=== PATIENT | female | born 1955 | race Caucasian/White ===

== ENCOUNTER → 2016-12-26 | Day surgery (SDC) | payer OTHER ==
[~2016-12-26] VITALS: Ht 157.5 cm; Wt 59.8 kg
[2016-12-26] VITALS (8 sets, daily range): BP systolic 110–133; BP diastolic 60–79; PULSE 55–62; RESP 12–16; O2SAT 96–100
[~2016-12-26] MED LIST: AMT25T PO; Bupivacaine-MPF 0.5% 30 mL Inj INFILTRATE ONE; CeFAZolin 2 Gm/50 mL D5W Duplex Bag IV ONE; CeFAZolin 2 Gm/50 mL D5W IV Premix IV SCH; DOCU-41 PO; Dexamethasone 4 mg/mL Inj ONE; EPHEDrine Sulfate 50 mg/mL Inj IM PRN; EPHEDrine Sulfate 50 mg/mL Inj IVPUSH PRN; EPHEDrine/NS 5 mg/mL 5 mL Syringe ONE; HYDROmorphone 1 mg/mL Inj IVPUSH PRN; HepLOK Flush 100 unit/mL 5 mL Inj IVFLUSH ONE; IMI100 PO; LORA10CA9 PO; Lactated Ringer's 1,000 ML IV SCH; Lactated Ringer's 500 ML IV PRN; MetoCLOpramide 5 mg/mL 2 mL Inj IVPUSH PRN; MetoCLOpramide 5 mg/mL 2 mL Inj ONE; OXYC-530 PO; Ondansetron 2 mg/mL 2 mL Inj IVPUSH PRN; Ondansetron 2 mg/mL 2 mL Inj ONE; POLY17PO6 PO; PROP120C2 PO; Phenylephrine 10,000 mCg/mL Inj IVPUSH PRN; Propofol 10,000 mCg/mL 20 mL Inj ONE; RANI150C4 PO; SERT100T9 PO; excedrin migraine; fentaNYL-PF 50 mCg/mL 2 mL Inj IVPUSH PRN; fentaNYL-PF 50 mCg/mL 2 mL Inj ONE; hydrOXYzine Inj 50 MG/1 mL SDV IM PRN
[2016-12-26] MEDS: Lactated Ringer's 1,000 ML IV SCH ×2 (06:48→07:28)
--- NOTE | 2016-12-26 07:57 | PCM.HPANE ---
Patient Data Date of Service: Dec 26, 2016 (0715) Surgeon Admitting Provider: Attending Provider:Niya Vital MD Primary Care Physician:Markos Best DO Other Provider:Eden Mitchell Anesthesia Reason for Visit Right Breast Cancer Ht/WT & BMI Height (Feet): 5 Height (Inches): 2.00 Weight (Kilograms): 59.8 Body Mass Index 24.00 Allergies Coded Allergies: morphine (Verified Allergy, Severe, severe N&V, 11/14/14) Sulfa (Sulfonamide Antibiotics) (Verified Allergy, Unknown, 11/11/14) Past Anesthesia History Anesthesia History: Denies:: Abnormal Airway, Anesthesia Reactions, Difficult Intubation, Fam Anesthesia Reaction, Fam Malignant Hypertherm, Malignant Hyperthermia Diabetes History Hx Diabetes?: No MRSA MRSA: No Medications Home Meds Incl Beta Jigna: Yes Date Beta Jigna Taken: Dec 25, 2016 Time Beta Jigna Taken: 0900 Reported Medications [excedrin migraine] No Conflict Check2 Tab Q6H PRN Headache 12/20/16 Ranitidine 150 Mg [id number] Mg PO BID Ref 0 12/20/16 Docusate Sodium (Colace)100 Mg Sjogoyc175 Mg PO DAILY PRN For Constipation Ref 0 12/20/16 Sumatriptan (Imitrex)100 Mg Mssbua469 Mg PO PRN migraines 12/20/16 Sertraline HCl (Sertraline)100 Mg Fwmjmp698 Mg PO DAILY 30 Days Ref 0 12/20/16 Propranolol ER 120 Mg Cap.sa.72d303 Mg PO DAILY 12/20/16 Loratadine 10 Mg Uuerbax39 Mg PO DAILY PRN For Congestion 12/20/16 Amitriptyline 25 Mg Tab25 Mg PO HS Ref 0 12/20/16 Discontinued Reported Medications Polyethylene Glycol 3350 (Miralax)17 Gm Powd.pack17 Gm PO DAILY 12/20/16 oxyCODONE 5 Mg Tablet5 Mg PO Q4H PRN For Pain Ref 0 12/20/16 [Excedrin Migraine ] No Conflict Check2 Tab PO Q6H PRN Headache 12/05/16 Sumatriptan (Imitrex)100 Mg Xnxfsi719 Mg PO PRN migraine 11/10/14 Sertraline HCl (Sertraline)100 Mg Nkejwe478 Mg PO DAILY 30 Days Ref 0 11/10/14 Ranitidine 150 Mg Nzpuprc893 Mg PO BID Ref 0 11/10/14 Propranolol ER 120 Mg Cap.sa.07b749 Mg PO DAILY 11/10/14 Polyethylene Glycol 3350 (Miralax)17 Gm Powd.pack17 Gm PO DAILY 11/10/14 Docusate Sodium (Colace)100 Mg Halszuy031 Mg PO DAILY PRN For Constipation Ref 0 11/10/14 Loratadine (Claritin)10 Mg Huyrdkf94 Mg PO DAILY PRN alergies 11/10/14 Amitriptyline 25 Mg Tab25 Mg PO HS Ref 0 11/10/14 Discontinued Scripts Polyethylene Glycol 3350 (Miralax)17 Gm Powd.pack17 Gm PO DAILY PRN For Constipation #20 Prov:Niya Vital MD 11/14/14 oxyCODONE 5 Mg Tablet5 Mg PO Q4H PRN For Moderate Pain #20 TABLET Prov:Niya Vital MD 11/14/14 History History of ENT Problems?: No HEENT History: Denies:: Abnormal Airway Difficult Intubation Hearing Problem Denture Type: None Teeth Condition: Missing Teeth Hx of Heart Problems?: No Cardiovascular History: Denies:: AICD Abdominal Aortic Aneurism Atrial Fibrillation Cardiac Surgery Chest Pain Congestive Heart Failure Coronary Artery Disease Edema Heart Murmur Hypertension Irregular Heartbeat Pacemaker Peripheral Vascular Rheumatic Fever Thrombophlebitis Valvular Heart Disease Hx of Respiratory Problem?: No Respiratory History: Denies:: Asthma COPD Chest Surgery Cough Dyspnea Emphysema Hemoptysis Oxygen Administration Pneumonia Pulmonary Embolism Tuberculosis Use of C-PAP Machine Use of Inhalers / NEBS Hx Neurologic Problems?: No Neurological History: Positive for:: Headaches (migraines) Denies:: CVA Hx of GI Problems?: Yes Gastrointestinal History: Positive for:: Gastroesphageal Reflux Denies:: Cirrhosis Diverticulitis Gall Bladder Disease Gastrointestinal Bleeding Heartburn Hepatitis Hiatal Hernia Liver Disease Rectal Bleeding Hx of Problems?: No Female Hx: Positive for:: Endometriosis (hx of ablation) Problems with Breasts? (breast cancer current admission problem) Denies:: Currently (post menopausal) Pelvic Inflammatory Skin History: Denies:: History Skin Disorders? Hx Musculoskeletal Problems?: Yes Musculoskeletal History: Positive for:: Musculoskeletal Trauma (prior hx of lesly bunion correction) Denies:: Joint Replacement Hx of Psycho/Social Problems?: Yes Psycho Social History: Positive for:: Hx Depression Hx Surgeries?: Yes (Endometriosis surgery; Hernia repair; fredi) Hx Any Other Health Problems?: Yes Other History: Positive for:: Cancer (breast cancer) Hospitalization ([facility]) Denies:: Endocrine Disease Thyroid Disease Hx Diabetes: No Hx Alcohol Use: NoHx Substance Use: No Smoking Status: Never Smoker Have You Smoked inLast 12 mo: No Stop/Bang P-Blood Pressure: treated: No B- Body Mass Index > 35 kg/m2: No A- Age over 50: Yes N- Neck Large Circumference: No G- Gender Male: No Risk Assessment Category Category 1A: Patient has history of documented sleep apnea, and HAS NOT received any narcotic, sedative or anesthesia administration during this stay. Category 1B: Patient has history of documented sleep apnea, and HAS received any narcotic , sedative or anesthesia administration during this stay Category 2: Patient has SUSPECTED Obstructive Sleep Apnea, and HAS received any narcotic , sedative or anesthesia administration during this stay. Category 3: Patient has SUSPECTED Obstructive Sleep Apnea and HAS NOT received narcotic, sedative or anesthesia administration during this stay. Category 4: Outpatient in Procedural Areas with known sleep apnea or who screen positive for High Risk via the STOP/BANG questionnaire. Exam Exam Vital Signs Vital Signs Date Time Temp Pulse Resp B/P Pulse Ox O2 Delivery O2 Flow Rate FiO2 12/26/16 06:48 36.1 59 16 133/79 99 Room Air General Appearance: Alert, Oriented X3, Cooperative, No Acute Distress HEENT/AIRWAY: MP 2 Lungs: Clear to Auscultation Heart: Exam Unremarkable Meds/Labs/Diagnostics Admission Meds Current Medications Lactated Ringer's (Lr) 1,000 ml @ 120 mls/hr Q8H20M IV Last administered on t 06:48; Start 12/26/16 at 05:00; Stop 12/26/16 at 13:19 Plan Impression Patient chart reviewed, patient interviewed and anesthestic plan with risks, benefits, and alternatives discussed, and informed consent obtained. ASA Physical Status: ASA2 Mod Systemic Disease Anesthetic Plan: GA Bene/Risks/Altern/Consents: Yes HP Complete Prior to Induction: Yes Wes Arellano MD Dec 26, 2016 07:57
--- NOTE | 2016-12-26 08:55 | OP ---
[address] [address] OPERATIVE REPORT PATIENT: BISHOP BARCENAS : 1955 MR#: [id number] ADMIT: 12/26/2016 JOB ID: [id number] DATE OF SURGERY: 12/26/2016 SURGEON: Niya Vital M.D. PREOPERATIVE DIAGNOSIS(ES): Right breast cancer. POSTOPERATIVE DIAGNOSIS(ES): Right breast cancer. PROCEDURE PERFORMED: Tunneled central venous catheter with subcutaneous venous port, intraoperative fluoroscopy and interpretation. 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 We discussed different treatment approaches and chose to go with neoadjuvant chemotherapy. After discussing the risks, benefits, and alternatives, she is here today for central venous catheterization with port for facilitating that. PROCEDURE DETAILS: She was placed in a supine position. Underwent smooth induction of general anesthesia. The neck and chest were prepped and draped in the usual sterile fashion. Surgical time-out was undertaken using safety checklist, and all were in agreement. We began by entering the left subclavian vein using Seldinger technique, and measuring the required length of the catheter using the wire. After that, I made a pocket over the left pectoralis and anchored the port in place with 2-0 PDS sutures x2. I then dilated the wire tract using introducer dilator and cut the catheter to the required length after attaching it to the port and advanced the catheter through the introducer sheath and removed the tear-away sheath. I then flushed the catheter and aspirated it to make sure it works well and then flushed it with heparin, checked the x-ray to make sure final placement looked good and closed the wound in layers of 4-0 Monocryl. Steri-Strips and sterile dressing were applied. The patient was recovered from anesthesia and was taken to the recovery room in stable condition.
--- NOTE | 2016-12-26 08:57 | PCM.ANEP1 ---
Post Anesthesia PACU Phase 1 Assessment Vital Signs Vital Signs Date Time Temp Pulse Resp B/P Pulse Ox O2 Delivery O2 Flow Rate FiO2 12/26/16 08:55 36.4 62 16 122/64 97 Room Air 12/26/16 08:45 62 13 110/72 96 Room Air 12/26/16 08:40 55 12 123/68 96 Room Air 12/26/16 08:35 62 13 123/60 98 Room Air 12/26/16 08:31 36.1 61 14 117/64 98 Room Air 12/26/16 06:48 36.1 59 16 133/79 99 Room Air Anesthetic Administered: GA Level of Alertness: Sleepy, easy to arouse RUEDA's with Equal Strength: Yes Pain: No Nausea or Vomiting: No CV Function & Hydration Stable: Yes Airway Device: Oxygen Delivery: Room Air Lungs: Clear to Auscultation PACU Phase 2 Assessment Complications: No Patient Instructions Provided: N/A Wes Arellano MD Dec 26, 2016 08:57
--- NOTE | 2016-12-26 09:30 | DRSVH ---
PROCEDURE: X-RAY CHEST ONE VIEW ([id number]) INDICATIONS: port placement TECHNIQUE: One view of the chest was acquired. COMPARISON: [facility], CT, CT CHEST ABD PELVIS W CON, 12/18/2016, 15:21. FINDINGS: Surgical changes and devices: There is a left-sided chest port is seen, with the tip overlying the in ferior aspect of the superior vena cava, near the cavoatrial junction. Lungs and pleura: On this semiupright portable chest examination, no large pneumothorax or large ple ural effusions are seen. No focal infiltrates are seen. Mediastinum: Mediastinal contours appear normal. Heart size is normal. Bones and chest wall: No suspicious bony lesions. Age-appropriate bony degenerative changes are see n. Mild levoconvex scoliotic curvature is noted. Overlying soft tissues appear unremarkable. IMPRESSION: The tip of the left-sided chest port is seen overlying the inferior aspect of the superio r vena cava. Dictated by: Higinio Betancourt M.D. on 12/26/2016 at 9:27 Approved by: Higinio Betancourt M.D. on 12/26/2016 at 9:28
== END | disposition home or self-care (01) ==
LOC: SAS 06:02
PROVIDERS: ATTEND Student in an Organized Health Care Education/Training Program
DX: C50.911 Malignant neoplasm of unspecified site of right female breast (principal); C77.3 Secondary and unspecified malignant neoplasm of axilla and upper limb lymph nodes; Z17.1 Estrogen receptor negative status [ER-]; F32.9 Major depressive disorder, single episode, unspecified; G43.909 Migraine, unspecified, not intractable, without status migrainosus
CPT/HCPCS: 36561; 71010; 77001; C1788; J0690; J1100; J1642; J2250; J2405; J2704; J2765; J3010; J7120